=== PATIENT | female | born 1960 | race Caucasian/White ===

== ENCOUNTER 2016-07-09 14:40 | Emergency (ER) | payer OTHER ==
[~2016-07-09] VITALS: Ht 175.3 cm; Wt 81.9 kg
[~2016-07-09 14:40] MED LIST: COMBIVENT RESPIM4 GM IH; DEXILANT60 MG PO; NEURONTIN300 MG PO; OXYMORPHONE HCL10 MG PO; PREMPRO 0.31 TABLET PO; [UNRECOGNIZED DRUG - REMARK]
[2016-07-09] MEDS ORDERED: MOTRIN800 MG PO (16:56)
[2016-07-09] MEDS ORDERED: FLEXERIL10 MG PO (16:56)
[2016-07-09 17:18] VITALS: BP 133/93
== END 2016-07-09 17:22 | disposition home or self-care (01) ==
LOC: EME 14:40
DX: S66.911A Strain of unspecified muscle, fascia and tendon at wrist and hand level, right hand, initial encounter (principal); M54.5 Low back pain; V49.40XA Driver injured in collision with unspecified motor vehicles in traffic accident, initial encounter
CPT/HCPCS: 72100; 99281; 99284; J7512